=== PATIENT | female | born 1955 | race Caucasian/White ===

== ENCOUNTER 2017-12-05 11:07 | Outpatient (CLI) | payer BC ==
--- NOTE | 2017-12-06 15:09 | Mammography Report ---
DIGITAL SCREENING MAMMOGRAM: 12/05/2017 CLINICAL INDICATION: A 62-year-old with a history of late childbearing for screening. COMPARISON: 01/2015, 03/2009. TECHNIQUE: Routine CC and MLO projections were obtained of the breasts. FINDINGS: Scattered fibroglandular tissue is present within the breasts. There are no dominant masses, suspicious microcalcifications, or secondary signs of malignancy. In comparison to the previous studies, there are no significant changes. ASSESSMENT: NO MAMMOGRAPHIC EVIDENCE OF MALIGNANCY. NO SIGNIFICANT INTERVAL CHANGES. RECOMMENDATION: Screening mammography is recommended annually. BIRADS CATEGORY 1 - NEGATIVE. STANDARD QUALIFYING STATEMENTS: 1. This examination was reviewed with the aid of Computed-Aided Detection (CAD). 2. A negative or benign imaging report should not delay biopsy if clinically suspicious findings are present. Consider surgical consultation if warranted. More than 5% of cancers are not identified by imaging. 3. Dense breasts may obscure an underlying neoplasm. TD: 12/06/2017 15:08
== END 2017-12-05 11:08 | disposition home or self-care (01) ==
LOC: DI 11:07
PROVIDERS: ATTEND Family Medicine
DX: Z12.31 Encounter for screening mammogram for malignant neoplasm of breast (principal)
CPT/HCPCS: 77067

== ENCOUNTER 2019-08-09 10:57 | Outpatient (CLI) | payer MEDICARE, OTHER ==
--- NOTE | 2019-08-09 12:06 | XRAY Report ---
Reason: CHEST PAIN, COUGH, FEVER, RHONCHI Procedure Date: 08/09/2019 Accession Number: [id number] / [id number] Procedure: XRS - Chest 2 View X-Ray CPT Code: 83544 Final Report FULL RESULT: EXAM: CHEST RADIOGRAPHY EXAM DATE: 08/09/2019 11:32 AM. CLINICAL HISTORY: Chest pain, cough, fever, rhonchi. COMPARISON: None. TECHNIQUE: 2 views. FINDINGS: Lungs/Pleura: No focal opacities evident. No pleural effusion. No pneumothorax. Normal volumes. Mediastinum: Heart and mediastinal contours are unremarkable. Other: None. IMPRESSION: No acute cardiopulmonary abnormality. RADIA
== END 2019-08-09 10:58 | disposition home or self-care (01) ==
LOC: DI.S 10:57
PROVIDERS: ATTEND Naturopath
DX: R07.9 Chest pain, unspecified (principal); R05 Cough; R50.9 Fever, unspecified; R09.89 Other specified symptoms and signs involving the circulatory and respiratory systems
CPT/HCPCS: 71046

== ENCOUNTER 2023-01-06 09:27 | Outpatient (CLI) | payer MEDICARE, OTHER ==
[2023-01-06 14:34] LABS: BASOPHILS # (AUTO) 0.1 10^3/uL (0.0-0.1); EOSINOPHILS # (AUTO) 0.2 10^3/uL (0.0-0.7); EOSINOPHILS % (AUTO) 3.3 %; HCT - HEMATOCRIT 42.8 % (37.0-47.0); HGB - HEMOGLOBIN 13.3 g/dL (12.0-16.0); LYMPHOCYTES # (AUTO) 2.3 10^3/uL (1.5-3.5); LYMPHOCYTES % (AUTO) 31.7 %; MEAN CORPUSCULAR HEMOGLOBIN 29.6 pg (27.0-31.0); MEAN CORPUSCULAR HGB CONC 31.1 g/dL (32.0-36.0); MEAN CORPUSCULAR VOLUME 95.1 fL (81.0-99.0); MEAN PLATELET VOLUME 11.4 fL (7.9-10.8); MONOCYTES # (AUTO) 0.5 10^3/uL (0.0-1.0); MONOCYTES % (AUTO) 7.4 %; NEUTROPHILS # (AUTO) 4.1 10^3/uL (1.5-6.6); NEUTROPHILS % (AUTO) 56.3 %; PLT - PLATELET COUNT 312 10^3/uL (130-450); RED CELL DISTRIBUTION WIDTH 13.1 % (12.0-15.0); WHITE BLOOD COUNT 7.2 x10^3/uL (4.8-10.8)
[2023-01-06 15:24] LABS: % IRON SATURATION 37 % (20-50); ALBUMIN 3.7 g/dL (3.2-5.5); ALKALINE PHOSPHATASE 52 IU/L (42-121); ALT ALANINE AMINOTRANSFERASE 18 IU/L (10-60); AST ASPARTATE AMINOTRANSFERASE 17 IU/L (10-42); BILIRUBIN,TOTAL 0.7 mg/dL (0.2-1.0); BUN - BLOOD UREA NITROGEN 21 mg/dL (6-20); CALCIUM 9.4 mg/dL (8.5-10.3); CARBON DIOXIDE - CO2 28 mmol/L (21-32); CHLORIDE 105 mmol/L (101-111); CHOL/HDL RATIO 3.2 (<4.4); CHOLESTEROL 202 mg/dL; CREATININE 0.6 mg/dL (0.4-1.0); CRP HIGH SENSITIVITY 2.1 mg/L; GFR - MDRD 99 (>89); GLUCOSE 114 mg/dL (70-100); HDL CHOLESTEROL 64 mg/dL; IRON 137 ug/dL (28-170); LDL CHOLESTEROL,CALCULATED 110 mg/dL; LDL/HDL RATIO 1.7 (<4.4); POTASSIUM 4.2 mmol/L (3.5-5.0); SODIUM 138 mmol/L (135-145); TOTAL IRON BINDING CAPACITY 370 ug/dL (250-450); TOTAL PROTEIN 7.5 g/dL (6.7-8.2); TRANSFERRIN 264 mg/dL (192-382); TRIGLYCERIDES 138 mg/dL; VLDL CHOLESTEROL 28 mg/dL
[2023-01-06 15:39] LABS: FREE T3 3.91 pg/mL (2.5-3.9)
[2023-01-06 15:40] LABS: FREE T4 (FREE THYROXINE) 0.72 ng/dL (0.58-1.64); THYROID STIMULATING HORMONE 8.26 uIU/mL (0.34-5.60)
[2023-01-06 15:45] LABS: FERRITIN 99.3 ng/mL (11.0-306.8)
[2023-01-06 22:07] LABS: ESTIMATED AVERAGE GLUCOSE 126 mg/dL (70-100)
[2023-01-07 05:10] LABS: VITAMIN D 25-HYDROXY 71.5 ng/mL (30.0-100.0)
== END 2023-01-06 09:28 | disposition home or self-care (01) ==
LOC: LAB.S 09:27
PROVIDERS: ATTEND Family Medicine
DX: E78.5 Hyperlipidemia, unspecified (principal); E03.9 Hypothyroidism, unspecified; R53.83 Other fatigue; D64.9 Anemia, unspecified; R73.09 Other abnormal glucose; E55.9 Vitamin D deficiency, unspecified
CPT/HCPCS: 36415; 80053; 80061; 82306; 82626; 82728; 83036; 83090; 83540; 83721; 84439; 84443; 84466; 84480; 84481; 84482; 85025; 86141

== ENCOUNTER 2023-02-03 09:18 | Outpatient (CLI) | payer MEDICARE, OTHER ==
--- NOTE | 2023-02-03 13:25 | DEXA Report ---
PROCEDURE: Dexa Spine and/or Hip INDICATIONS: POST MENOPAUSAL TECHNIQUE: Dual energy x-ray absorptiometry (DXA) was performed on a [employer] System. Regions measur ed are the AP Spine, femoral neck, and if needed forearm. COMPARISON: 01/26/2015 FINDINGS: Lumbar Spine: Bone Mineral Density 1.402 g/cm/cm,T score 1.9. Normal. Previous T score 1.5. Left Femoral Neck: Bone Mineral Density 0.937 g/cm/cm, T score -0.7. Normal. Previous T score 0.0. Left Hip: Bone Mineral Density 0.990 g/cm/cm,T score -0.1. Normal. Previous T score -0.1. (T score greater or equal to -1.0: NORMAL) (T score from -1.1 to -2.4: OSTEOPENIA) (T score less than or equal to -2.5 to: OSTEOPOROSIS) Impression: By WHO criteria, this patient has normal bone density. Patients with diagnosis of osteoporosis or osteopenia should have regular bone mineral density assess ment. For those eligible for Medicare, routine testing is allowed once every 2 years. Testing frequ ency can be increased for patients who have rapidly progressing disease or for those who are receivin g medical therapy to restore bone mass. Reviewed by: Oskar De La Cruz MD on 02/03/2023 1:24 PM PDT Approved by: Oskar De La Cruz MD on 02/03/2023 1:24 PM PDT Station ID: [id number]
== END 2023-02-03 09:19 | disposition home or self-care (01) ==
LOC: DI 09:18
PROVIDERS: ATTEND Family Medicine
DX: N95.9 Unspecified menopausal and perimenopausal disorder (principal)

== ENCOUNTER 2023-02-03 09:18 | Outpatient (CLI) | payer MEDICARE, OTHER ==
--- NOTE | 2023-02-06 10:36 | Mammography Report ---
BILATERAL DIGITAL SCREENING MAMMOGRAM 3D/2D WITH EXAGGERATED CC: 02/03/2023 CLINICAL: Routine screening. Comparison is made to exams dated: 12/05/2017 mammogram, 01/26/2015 mammogram, and 03/26/2009 mammogram - [facility]. Both breasts are almost entirely fatty (category a/<25% glandular tissue). No significant masses, calcifications, or other findings are seen in either breast. There has been no significant interval change. IMPRESSION: NEGATIVE There is no mammographic evidence of malignancy. A 1 year screening mammogram is recommended. Based on the Tyrer Cuzick model (a risk assessment model) the patients lifetime risk is 3.5% and her 10 year risk is 2.1%. According to the ACR, ACS, and NCCN guidelines, an annual breast MRI exam elisabet g with mammogram is recommended if the patients lifetime risk is 20% or greater. This exam was interpreted at Station ID: [id number]. NOTE: For mammograms, a report in lay terms will be sent to the patient. Approximately 15% of breast malignancies will not be visualized mammographically. In the management of a palpable breast mass, a negative mammogram must not discourage biopsy of a clinically suspicious lesion. Electronically Signed By: Rigoberto abraham/francia:02/03/2023 10:49:16 letter sent: No_Letter ACR BI-RADS Category 1: Negative 3341F PARENCHYMAL PATTERN: (F) - The breast(s) demonstrate(s) diffuse fatty replacement. BI-RADS CATEGORY: (1) - 1 Mammogram [id number] 1 year screening LATERALITY: (B)
== END 2023-02-03 09:19 | disposition home or self-care (01) ==
LOC: DI 09:18
PROVIDERS: ATTEND Family Medicine
DX: Z12.31 Encounter for screening mammogram for malignant neoplasm of breast (principal)

== ENCOUNTER 2023-05-11 10:08 | Outpatient (CLI) | payer MEDICARE, OTHER ==
[2023-05-11 14:53] LABS: BASOPHILS # (AUTO) 0.1 10^3/uL (0.0-0.1); BASOPHILS % (AUTO) 0.6 %; EOSINOPHILS # (AUTO) 0.2 10^3/uL (0.0-0.7); EOSINOPHILS % (AUTO) 1.9 %; HCT - HEMATOCRIT 41.6 % (37.0-47.0); HGB - HEMOGLOBIN 13.3 g/dL (12.0-16.0); LYMPHOCYTES # (AUTO) 2.3 10^3/uL (1.5-3.5); LYMPHOCYTES % (AUTO) 29.3 %; MEAN CORPUSCULAR HEMOGLOBIN 30.6 pg (27.0-31.0); MEAN CORPUSCULAR VOLUME 95.9 fL (81.0-99.0); MEAN PLATELET VOLUME 11.6 fL (7.9-10.8); MONOCYTES # (AUTO) 0.6 10^3/uL (0.0-1.0); MONOCYTES % (AUTO) 7.2 %; NEUTROPHILS # (AUTO) 4.7 10^3/uL (1.5-6.6); NEUTROPHILS % (AUTO) 60.6 %; PLT - PLATELET COUNT 249 10^3/uL (130-450); RED BLOOD COUNT 4.34 10^6/uL (4.20-5.40); RED CELL DISTRIBUTION WIDTH 13.2 % (12.0-15.0); WHITE BLOOD COUNT 7.8 x10^3/uL (4.8-10.8)
[2023-05-11 14:58] LABS: ALBUMIN 4.1 g/dL (3.2-5.5); ALBUMIN/GLOBULIN RATIO 1.3 (1.0-2.2); BILIRUBIN,TOTAL 0.4 mg/dL (0.2-1.0); CREATININE 0.7 mg/dL (0.6-1.3); POTASSIUM 4.4 mmol/L (3.5-4.5); TOTAL PROTEIN 7.3 g/dL (6.4-8.9)
== END 2023-05-11 10:09 | disposition home or self-care (01) ==
LOC: LAB.S 10:08
PROVIDERS: ATTEND Family Medicine
DX: I10 Essential (primary) hypertension (principal); E88.09 Other disorders of plasma-protein metabolism, not elsewhere classified
CPT/HCPCS: 36415; 80053; 81599; 82480; 85025

== ENCOUNTER 2023-08-22 14:21 | Outpatient (CLI) | payer MEDICARE, OTHER ==
[2023-08-22 20:13] LABS: ALBUMIN 4.2 g/dL (3.2-5.5); ALBUMIN/GLOBULIN RATIO 1.4 (1.0-2.2); BILIRUBIN,TOTAL 0.5 mg/dL (0.2-1.0); CALCIUM 9.8 mg/dL (8.5-10.3); CREATININE 0.7 mg/dL (0.6-1.3); TOTAL PROTEIN 7.3 g/dL (6.4-8.9)
[2023-08-22 20:28] LABS: THYROID STIMULATING HORMONE 5.65 uIU/mL (0.34-5.60)
== END 2023-08-22 14:22 | disposition home or self-care (01) ==
LOC: LAB.S 14:21
PROVIDERS: ATTEND Family Medicine
DX: E03.9 Hypothyroidism, unspecified (principal); R53.83 Other fatigue; E87.5 Hyperkalemia
CPT/HCPCS: 36415; 80053; 82626; 84439; 84443; 84480; 84481; 84482

== ENCOUNTER 2023-11-17 12:18 | Outpatient (CLI) | payer MEDICARE, OTHER ==
--- NOTE | 2023-11-17 12:58 | XRAY Report ---
PROCEDURE: Chest 2V INDICATIONS: PNEUMONIA TECHNIQUE: 2 views of the chest were acquired. COMPARISON: 08/09/2019 FINDINGS: Surgical changes and devices: None. Lungs and pleura: Mildly low lung volumes. Mild opacity is seen in the left midlung. No drainable ef fusions. Mediastinum: Unchanged cardiac mediastinal contours. Normal heart size. Bones and chest wall: Unremarkable IMPRESSION: Mild opacity in the left midlung suspicious for infection. Consider future imaging surveillance to as sess for resolution. Reviewed by: Rigoberto Payan MD on 11/17/2023 12:57 PM PST Approved by: Rigoberto Payan MD on 11/17/2023 12:57 PM PST Station ID: [id number]
== END 2023-11-17 12:19 | disposition home or self-care (01) ==
LOC: DI 12:18
PROVIDERS: ATTEND Family Medicine
DX: J18.9 Pneumonia, unspecified organism (principal)

== ENCOUNTER 2023-12-26 11:38 | Outpatient (CLI) | payer MEDICARE, OTHER ==
[2023-12-26 15:10] LABS: ALBUMIN 3.8 g/dL (3.2-5.5); ALBUMIN/GLOBULIN RATIO 1.2 (1.0-2.2); ALKALINE PHOSPHATASE 51 IU/L (42-121); ALT ALANINE AMINOTRANSFERASE 13 IU/L (10-60); AST ASPARTATE AMINOTRANSFERASE 14 IU/L (10-42); BASOPHILS % (AUTO) 0.5 %; BILIRUBIN,TOTAL 0.5 mg/dL (0.2-1.0); BUN - BLOOD UREA NITROGEN 20 mg/dL (6-20); CALCIUM 10.1 mg/dL (8.5-10.3); CARBON DIOXIDE - CO2 29 mmol/L (21-32); CHLORIDE 105 mmol/L (101-111); CHOL/HDL RATIO 3.8 (<4.4); CHOLESTEROL 177 mg/dL; CREATININE 0.6 mg/dL (0.6-1.3); CRP HIGH SENSITIVITY 3.29 mg/L; EOSINOPHILS # (AUTO) 0.1 10^3/uL (0.0-0.7); EOSINOPHILS % (AUTO) 1.7 %; GFR - MDRD 99 (>89); GLUCOSE 107 mg/dL (74-104); HCT - HEMATOCRIT 41.6 % (37.0-47.0); HDL CHOLESTEROL 46 mg/dL; HGB - HEMOGLOBIN 13.1 g/dL (12.0-16.0); LDL CHOLESTEROL,CALCULATED 82 mg/dL; LDL/HDL RATIO 1.8 (<4.4); LYMPHOCYTES # (AUTO) 1.8 10^3/uL (1.5-3.5); LYMPHOCYTES % (AUTO) 24.4 %; MEAN CORPUSCULAR HEMOGLOBIN 29.8 pg (27.0-31.0); MEAN CORPUSCULAR HGB CONC 31.5 g/dL (32.0-36.0); MEAN CORPUSCULAR VOLUME 94.8 fL (81.0-99.0); MEAN PLATELET VOLUME 11.5 fL (7.9-10.8); MONOCYTES # (AUTO) 0.7 10^3/uL (0.0-1.0); MONOCYTES % (AUTO) 9.2 %; NEUTROPHILS # (AUTO) 4.7 10^3/uL (1.5-6.6); NEUTROPHILS % (AUTO) 63.8 %; PLT - PLATELET COUNT 259 10^3/uL (130-450); RED BLOOD COUNT 4.39 10^6/uL (4.20-5.40); RED CELL DISTRIBUTION WIDTH 13.9 % (12.0-15.0); SODIUM 138 mmol/L (135-145); TOTAL PROTEIN 6.9 g/dL (6.4-8.9); TRIGLYCERIDES 244 mg/dL (48-352); VLDL CHOLESTEROL 49 mg/dL; WHITE BLOOD COUNT 7.4 x10^3/uL (4.8-10.8)
[2023-12-26 15:20] LABS: THYROID STIMULATING HORMONE 3.56 uIU/mL (0.34-5.60)
[2023-12-26 15:23] LABS: FERRITIN 47.8 ng/mL (11.0-306.8)
[2023-12-26 20:46] LABS: ESTIMATED AVERAGE GLUCOSE 131 mg/dL (70-100); HEMOGLOBIN A1c% 6.2 % (4.27-6.07)
[2023-12-27 03:09] LABS: VITAMIN D 25-HYDROXY 74.1 ng/mL (30.0-100.0)
== END 2023-12-26 11:39 | disposition home or self-care (01) ==
LOC: LAB.S 11:38
PROVIDERS: ATTEND Family Medicine
DX: R73.09 Other abnormal glucose (principal); R53.83 Other fatigue; E03.9 Hypothyroidism, unspecified; E78.5 Hyperlipidemia, unspecified; I10 Essential (primary) hypertension; E55.9 Vitamin D deficiency, unspecified; D64.9 Anemia, unspecified
CPT/HCPCS: 36415; 80053; 80061; 82306; 82533; 82626; 82728; 83036; 83090; 83721; 84439; 84443; 84480; 84481; 84482; 85025; 86141

== ENCOUNTER 2024-02-02 09:16 | Outpatient (CLI) | payer MEDICARE, OTHER ==
[2024-02-02 15:11] LABS: BASOPHILS % (AUTO) 0.4 %; EOSINOPHILS # (AUTO) 0.2 10^3/uL (0.0-0.7); EOSINOPHILS % (AUTO) 2.3 %; HCT - HEMATOCRIT 41.2 % (37.0-47.0); HGB - HEMOGLOBIN 12.9 g/dL (12.0-16.0); LYMPHOCYTES # (AUTO) 1.7 10^3/uL (1.5-3.5); LYMPHOCYTES % (AUTO) 24.1 %; MEAN CORPUSCULAR HEMOGLOBIN 29.3 pg (27.0-31.0); MEAN CORPUSCULAR HGB CONC 31.3 g/dL (32.0-36.0); MEAN CORPUSCULAR VOLUME 93.6 fL (81.0-99.0); MEAN PLATELET VOLUME 11.7 fL (7.9-10.8); MONOCYTES # (AUTO) 0.7 10^3/uL (0.0-1.0); MONOCYTES % (AUTO) 10.6 %; NEUTROPHILS # (AUTO) 4.3 10^3/uL (1.5-6.6); NEUTROPHILS % (AUTO) 62.3 %; PLT - PLATELET COUNT 233 10^3/uL (130-450); RED CELL DISTRIBUTION WIDTH 13.5 % (12.0-15.0); WHITE BLOOD COUNT 6.9 x10^3/uL (4.8-10.8)
[2024-02-02 16:22] LABS: ALBUMIN 3.9 g/dL (3.2-5.5); ALBUMIN/GLOBULIN RATIO 1.5 (1.0-2.2); ALKALINE PHOSPHATASE 43 IU/L (42-121); ALT ALANINE AMINOTRANSFERASE 13 IU/L (10-60); AST ASPARTATE AMINOTRANSFERASE 14 IU/L (10-42); BILIRUBIN,TOTAL 0.6 mg/dL (0.2-1.0); BUN - BLOOD UREA NITROGEN 17 mg/dL (6-20); CALCIUM 9.5 mg/dL (8.5-10.3); CARBON DIOXIDE - CO2 28 mmol/L (21-32); CHLORIDE 107 mmol/L (101-111); CHOLESTEROL 160 mg/dL; CREATININE 0.6 mg/dL (0.6-1.3); GFR - MDRD 99 (>89); GLUCOSE 123 mg/dL (74-104); HDL CHOLESTEROL 54 mg/dL; LDL CHOLESTEROL,CALCULATED 80 mg/dL; LDL/HDL RATIO 1.5 (<4.4); POTASSIUM 4.3 mmol/L (3.5-4.5); SODIUM 138 mmol/L (135-145); TOTAL PROTEIN 6.5 g/dL (6.4-8.9); TRIGLYCERIDES 132 mg/dL (48-352); VLDL CHOLESTEROL 26 mg/dL
[2024-02-02 20:51] LABS: ESTIMATED AVERAGE GLUCOSE 134 mg/dL (70-100); HEMOGLOBIN A1c% 6.3 % (4.27-6.07)
== END 2024-02-02 09:17 | disposition home or self-care (01) ==
LOC: LAB.S 09:16
PROVIDERS: ATTEND Family Medicine
DX: I10 Essential (primary) hypertension (principal); R73.09 Other abnormal glucose; R53.83 Other fatigue; E78.5 Hyperlipidemia, unspecified
CPT/HCPCS: 36415; 80053; 80061; 83036; 83525; 83721; 85025

== ENCOUNTER 2024-03-14 18:01 | Emergency (ER) | payer MEDICARE, OTHER ==
[2024-03-14 18:45] LABS: BASOPHILS % (AUTO) 0.4 %; EOSINOPHILS # (AUTO) 0.2 10^3/uL (0.0-0.7); EOSINOPHILS % (AUTO) 2.1 %; HCT - HEMATOCRIT 41.6 % (37.0-47.0); HGB - HEMOGLOBIN 13.6 g/dL (12.0-16.0); LYMPHOCYTES # (AUTO) 2.5 10^3/uL (1.5-3.5); LYMPHOCYTES % (AUTO) 26.8 %; MEAN CORPUSCULAR HEMOGLOBIN 30.1 pg (27.0-31.0); MEAN CORPUSCULAR HGB CONC 32.7 g/dL (32.0-36.0); MEAN PLATELET VOLUME 10.2 fL (7.9-10.8); MONOCYTES # (AUTO) 0.9 10^3/uL (0.0-1.0); MONOCYTES % (AUTO) 9.3 %; NEUTROPHILS # (AUTO) 5.8 10^3/uL (1.5-6.6); NEUTROPHILS % (AUTO) 61.1 %; PLT - PLATELET COUNT 233 10^3/uL (130-450); RED BLOOD COUNT 4.52 10^6/uL (4.20-5.40); RED CELL DISTRIBUTION WIDTH 13.7 % (12.0-15.0); WHITE BLOOD COUNT 9.4 x10^3/uL (4.8-10.8)
--- NOTE | 2024-03-14 19:03 | XRAY Report ---
PROCEDURE: Chest 1V INDICATIONS: Chest Pain TECHNIQUE: One view of the chest was acquired. COMPARISON: Chest radiograph 11/17/2023. FINDINGS: Surgical changes and devices: None. Lungs and pleura: No pleural effusions or pneumothorax. Lungs are clear. Mediastinum: Mediastinal contours appear normal. Heart size is normal. Bones and chest wall: No suspicious bony lesions. Overlying soft tissues appear unremarkable. IMPRESSION: No acute cardiopulmonary process. Reviewed by: Jennifer Doty MD, PhD on 03/14/2024 6:02 PM ANNABELLA Approved by: Jennifer Doty MD, PhD on 03/14/2024 6:02 PM ANNABELLA Station ID: [id number]
[2024-03-14 19:04] LABS: TROPONIN I HIGH SENSITIVITY 2.5 ng/L (2.3-14.8)
[2024-03-14 19:05] LABS: ALBUMIN 4.3 g/dL (3.2-5.5); ALBUMIN/GLOBULIN RATIO 1.4 (1.0-2.2); BILIRUBIN,TOTAL 0.4 mg/dL (0.2-1.0); CREATININE 0.7 mg/dL (0.6-1.3); POTASSIUM 4.1 mmol/L (3.5-4.5); TOTAL PROTEIN 7.3 g/dL (6.4-8.9)
[2024-03-14 19:14] LABS: THYROID STIMULATING HORMONE 13.87 uIU/mL (0.34-5.60)
--- NOTE | 2024-03-14 19:34 | ED Physician Documentation ---
PD HPI CHEST PAIN - Stated complaint Stated Complaint: CP/SOA - Chief complaint Chief Complaint: Cardiac - History obtained from History obtained from: Patient - Additional information Additional information: 68-year-old female presented from her primary care clinic where she had presented with mild shortness of breath and concerned that she may have A pneumonia or bronchitis because she had that a few months ago. She Was feeling bad difficulty with breathing stating her chest felt "stuck" when she was taking breaths at times. In the clinic, she was noted to have a irregular heart rhythm by auscultation therefore she was sent over to the emergency department for evaluation. It does not sound like an EKG was done in the clinic.The patient states she has not had a fever, has had occasional cough but no wheezing, no paroxysmal nocturnal dyspnea or orthopnea, and does not fear any heart palpitations. She did have some left jaw pain which was not worse with exertion And she believes is related to trying to pop her ears recently and opening her mouth quite wide. It is very localized and reproducible with palpation and opening her mouth all the way.. She is also noted 2 to 3 months of puffiness in her hands and legs. This does not come on acutely but has been noted by her PCP and they are monitoring at this time. She denies any calf pain or fullness, no unilateral swelling. Review of Systems Constitutional: reports: Reviewed and negative Eyes: reports: Reviewed and negative Ears: reports: Reviewed and negative Nose: reports: Reviewed and negative Throat: reports: Reviewed and negative Cardiac: reports: Chest pain / pressure Respiratory: reports: Dyspnea, Cough GI: reports: Reviewed and negative : reports: Reviewed and negative Skin: reports: Reviewed and negative Musculoskeletal: reports: Extremity swelling PD PAST MEDICAL HISTORY - Past Medical History Past Medical History: Yes Cardiovascular: Hypertension Endocrine/Autoimmune: HyPOthyroidism Other Past Medical History: chronic sinus issues - Past Surgical History Past Surgical History: Yes General: Cholecystectomy /[employer]: Hysterectomy HEENT: Tonsil/Adenoidectomy - Allergies Allergies/Adverse Reactions: Allergies Allergy/AdvReac Type Severity Reaction Status Date / Time Penicillins Allergy Hives Verified 03/14/24 18:18 mold AdvReac Respiratory Verified 03/14/24 18:18 - Social History Does the pt smoke?: No Smoking Status: Never smoker Does the pt drink ETOH?: Yes Does the pt have substance abuse?: No PD ED PE NORMAL - Vitals Vital signs reviewed: Yes - General General: Alert and oriented X 3, No acute distress, Well developed/nourished - HEENT HEENT: Atraumatic, Moist mucous membranes - Neck Neck: Supple, no meningeal sign, No JVD - Cardiac Cardiac: RRR, No murmur, No gallop, No rub, Strong equal pulses - Respiratory Respiratory: No respiratory distress, Clear bilaterally - Abdomen Abdomen: Normal bowel sounds, Soft, Non tender, Non distended - Back Back: No CVA TTP, No spinal TTP - Derm Derm: Normal color, Warm and dry, No rash - Extremities Extremities: No deformity, No tenderness to palpate, Normal ROM s pain, Other (There is a bilateral lower extremity 1+ edema, no calf pain or fullness. Slight puffiness to both hands.) - Neuro Neuro: Alert and oriented X 3 Eye Opening: Spontaneous Motor: Obeys Commands Verbal: Oriented GCS Score: 15 - Psych Psych: Normal mood, Normal affect Results - Vitals Vitals: Vital Signs - 24 hr 03/14/24 03/14/24 18:10 19:57 Temperature 36.4 C L Heart Rate 73 71 Respiratory 16 17 Rate Blood Pressure 152/73 H 144/74 H O2 Saturation 100 95 Oxygen O2 Source Room air - EKG (time done) No standard instances EKG releavant findings:: EKG personally interpreted by author of this note. Relevant findings are: Rate: Rate (enter#) (72) Rhythm: NSR [place]: Normal Intervals: Normal [place] QRS: Normal Ischemia: Normal ST segments Computer interpretation: Agree with computer - Labs Labs: Laboratory Tests 03/14/24 03/14/24 18:39 18:39 WBC 9.4 RBC 4.52 Hgb 13.6 Hct 41.6 MCV 92.0 MCH 30.1 MCHC 32.7 RDW 13.7 Plt Count 233 MPV 10.2 Neut # (Auto) 5.8 Lymph # (Auto) 2.5 Tift # (Auto) 0.9 Eos # (Auto) 0.2 Baso # (Auto) 0.0 Absolute Nucleated RBC 0.00 Nucleated RBC % 0.0 Sodium 138 Potassium 4.1 Chloride 105 Carbon Dioxide 30 Anion Gap 3.0 L BUN 20 Creatinine 0.7 Estimated GFR (MDRD) 83 L Glucose 110 H Calcium 10.0 Magnesium 2.0 Total Bilirubin 0.4 AST 17 ALT 16 Alkaline Phosphatase 52 Troponin I High Sens 2.5 Total Protein 7.3 Albumin 4.3 Globulin 3.0 Albumin/Globulin Ratio 1.4 Lipase 30 TSH 13.87 H - Rads (name of study) No standard instances Relevant Findings:: Final report received PD Medical Decision Making - ED course Complexity details: reviewed results, re-evaluated patient, considered diff erential, d/w patient, d/w family ED course: 68-year-old female presented with concerns for possible irregular heart rhythm heard in the clinic as described in HPI. She is also recently been having some mild shortness of breath head as well as left jaw pain the left jaw pain is reproducible and related to a recent incident where she tried to open her mouth wide to pop her ears. I do not believe this is an anginal equivalent. On exam the patient is very well-appearing here, she is oxygenating well on room air, with stable vital signs. We obtained lab work which is reassuring including a troponin of 2.5, her EKG shows normal sinus rhythm, possible left atrial enlargement but no other acute findings, and her chest x-ray is negative. She does have some mild lower extremity edema that is bilateral and has been present for several months. This may be due to mild CHF though the patient does not have any signs of acute CHF exacerbation on exam, or it may be related to her suboptimal thyroid or she was also recently started on amlodipine which could be contributing. In any case, she does not appear to have any emergent cause of her symptoms today and I believe she can follow back up with her PCP. I recommend outpatient Zio patch monitoring and she would also benefit from a echocardiogram if not done already. Her TSH today is somewhat elevated and I re commend she discuss possible adjustments in her levothyroxine with her PCP. She has a dental appointment in a few days which she will keep to follow-up on her jaw pain. Return precautions reviewed if any new or worsening symptoms. Departure - Departure Disposition: 01 Home, Self Care Clinical Impression: Atypical chest pain Condition: Good Instructions: ED Chest Pain NonCardiac Comments: Your chest x-ray was negative and your EKG did not show any abnormal heart rhythm today. It is possible however that you had an abnormal heart rhythm when you were in the clinic therefore I recommend following back up with your primary doctor and they may order a home heart monitor or Zio patch to evaluate. Your labs today were generally stable though your thyroid hormone is elevated. Please discuss with your PCP whether you need to increase your levothyroxine. They may also consider outpatient ultrasound on your heart called an echocardiogram for your mild generalized swelling though this may be due to your thyroid or one of the medications you are on called amlodipine. Forms: PCP List
[2024-03-14 20:47] VITALS: BP 135/78; O2SAT 99
== END 2024-03-14 20:45 | disposition home or self-care (01) ==
LOC: ED 18:01
DX: R07.89 Other chest pain (principal); R68.84 Jaw pain; R60.0 Localized edema; E03.9 Hypothyroidism, unspecified
CPT/HCPCS: 36415; 80053; 83690; 83735; 84443; 84484; 85025; 93005; 99284

== ENCOUNTER 2024-06-11 10:45 | Outpatient (CLI) | payer MEDICARE, OTHER ==
--- NOTE | 2024-06-11 11:17 | CARDIAC PROCEDURE NOTE ---
Stress Test Report Service Date: 06/11/24 Service Time: 11:00 Ordering Provider: William Hill MD Indication for Test: Assess intermittent exertional dyspnea and occasional chest tightness, sometimes with radiation to the jaw. Significant Medical History: Meenakshi is referred for a treadmill stress echocardiogram today, to assess intermittent exertional shortness of breath and occasional chest/jaw tightness, that have been occurring over the past few months. Her history really dates back to this spring when she had a severe respiratory infection with some chronic breathing sequelae. In late February she presented to her primary care clin ic with concerns for recurrent chest infection, manifested by exertional shortness of breath and chest discomfort and she was then referred to the [facility] Emergency Department. During the clinic evaluation there was concern for an irregular heart rhythm, though this was not documented on exam or by EKG at the E.D. Her EKG was non-ischemic, troponin was in the normal range and chest x-ray did not show an acute pulmonary process. Since that time she remains active, walking on a route with hills nearly daily, mostly feeling well, but at times having some shortness of breath and rarely episodes of upper chest tightness, sometimes associated with radiation to her jaw. Symptoms have resolved with rest but she has been able to carry on with her typical routines since that time. She has some medical complexities including sinus surgery x 3 for which she is still taking Singulair per her ENT's recommendation; she has "prediabetes" for which she is on metformin; she has hypertension treated for at least 10 years and she reports Raynaud's phenomenon, with cold fingers and toes and typical reddening and then blanching of her fingers in the cold. Cardiac Risk Factors: Positive for hypertension treated for >10 years and either pre-diabetes or francisco diabetes (treated with metformin); negative for treated hyperlipidemia, known family history of CAD and personal history of tobacco smoking. Type of Stress Test: ETT with Echocardiography Procedure: -Exercise Treadmill Test- After signing informed consent, the patient underwent echo imaging at rest and then performed treadmill exercise using a Austin protocol. The patient exercised for 5 minutes 9 seconds and achieved a peak heart rate of 152 (101 percent predicted maximum heart rate for age), and an estimated workload of 7.1 METS. The test was terminated due to fatigue/shortness of breath. Resting heart rate: 75 Peak heart rate: 152 Normal response to exercise. Resting BP: 163/79 Peak BP: 207/79 Hypertensive resting systolic BP with hypertensive response to exercise. Room air oxygen saturation by finger oximetry during exercise ranged between 88- 91% in stage I exercise to as low as 77% in early stage II, with return to the mid-90's in Recovery. Rhythm during exercise: Sinus rhythm throughout without ectopy; zero PVCs recorded. Symptoms: She became dyspneic, she reported as in proportion to the level of exercise, not exaggerated; she described no chest or jaw tightness. EKG at rest showed normal sinus rhythm with early precordial R/S transition and normal repolarization pattern. EKG at peak stress showed no ischemia by EKG criteria. In Recovery HR and BP gradually decreased towards baseline levels, remaining elevated at 7:00 (HR 108, BP 178/87). Echo imaging performed at rest and with stress will be reported separately. Andre Greer MD, was present throughout this treadmill stress study and supervised it in its entirety. Summary: 1) Exercise tolerance was modestly below average for age and sex as evidenced by KIKI of 10%. 2) Normal resting EKG. 3) Adequate level of exercise was achieved on this treadmill stress test. 4) Abnormal hyertensive BP response to exercise. 5) No ischemic changes by EKG criteria were seen at peak stress. 6) Evaluation of oxygen saturation with two separate oximeters was suspicious for major desaturation, though validity of the measurements may have been compromised by the patient's icy cold hands and Raynaud's phenomenon. 7) Echo image interpretation reveals normal left ventricular size, wall thickness and systolic function, with appropriate hyperdynamic augmentation of all segments with exercise, indicating no evidence of prior infarct or inducible ischemia. No significant valvular abnormality or elevation of estimated pulmonary artery systolic pressure seen on screening study. See separate report for more details. Conclusions and Recommendations: 1) The stress echocardiogram results are probably reassuring from the standpoint of coronary disease, as there was no symptom, EKG or echocardiographic evidence of inducible ischemia. 2) Unfortunately the oxygen saturation values obtained were very likely adversely affected by her probable Raynaud's phenomenon, and the possibility of high-risk desaturation could not be excluded using finger oximetry. While unlikely to represent arterial values, this should likely be evaluated further, with an alternative non-invasive technique or by invasive oximetry.
== END 2024-06-11 10:46 | disposition home or self-care (01) ==
LOC: DI 10:45
PROVIDERS: ATTEND Internal Medicine Cardiovascular Disease
DX: R07.89 Other chest pain (principal); I10 Essential (primary) hypertension; I73.00 Raynaud's syndrome without gangrene
CPT/HCPCS: 93350